=== PATIENT | female | born 2000 | race African-American/Black ===

== ENCOUNTER 2021-03-31 23:48 | Emergency (ER) | payer OTHER ==
[2021-04-01] MEDS ORDERED: Acetaminophen 325 MG TAB ONE (00:44)
[2021-04-01 00:59] LABS: Bilirubin Neg (Negative); Blood, Urine 50 (Negative); Clarity Cloudy (Clear); Glucose, Urine (Dipstick) Normal (Negative); Ketone, Urine 5 mg/dL (Negative); Leukocyte 500 (Negative); Nitrite Negative (Negative); Protein, Urine (Dipstick) 30 mg/dl (Neg-Trace)
[2021-04-01 01:00] LABS: Pregnancy Test - Urine (BHCG) POSITIVE (Negative); Pregu Control Background? CLEAR/WHITE (CLR/WHITE); Pregu Control Bar Appear? YES (CONTROL BAR)
[2021-04-01 01:09] LABS: Bacteria/HPF 2+ HPF (None Seen); Mucous/LPF 4+ LPF (<2+); WBC/HPF 21-50 HPF (0-3)
== END 2021-04-01 01:39 | disposition home or self-care (01) ==
LOC: CSHERS 23:48
DX: O23.40 Unspecified infection of urinary tract in pregnancy, unspecified trimester (principal); N39.0 Urinary tract infection, site not specified
CPT/HCPCS: 81003; 81015; 81025; 99284

== ENCOUNTER 2021-04-16 21:18 | Emergency (ER) | payer OTHER ==
[2021-04-17 00:29] LABS: Bilirubin Neg (Negative); Blood, Urine Negative (Negative); Clarity Clear (Clear); Glucose, Urine (Dipstick) Normal (Negative); Ketone, Urine Negative (Negative); Leukocyte Negative (Negative); Nitrite Negative (Negative); Protein, Urine (Dipstick) Negative (Neg-Trace)
[2021-04-17 00:31] LABS: Pregnancy Test - Urine (BHCG) POSITIVE (Negative); Pregu Control Background? CLEAR/WHITE (CLR/WHITE); Pregu Control Bar Appear? YES (CONTROL BAR)
[2021-04-17 01:11] LABS: #Eosinphils 0.2 10x3/uL (0.0-0.5); #Monocytes 0.6 10x3/uL (0.0-1.1); #Neutrophils 7.2 10x3/uL (1.5-8.4); %Basophils 0.2 % (0.0-2.0); %Eosinophils 1.4 % (0.0-6.0); %Lymphocytes 24.5 % (18.0-47.0); %Monocytes 5.6 % (0.0-10.0); %Neutrophils 68.1 % (40.0-75.0); Hemoglobin 11.1 g/dL (12.0-15.5); Mean Corpuscular HGB CONC 32.6 g/dL (32.0-36.0); Mean Corpuscular Hemoglobin 27.8 pg (27.0-33.0); Mean Corpuscular Volume 85.5 fl (81.6-98.3); Mean Platelet Volume 12.3 fl (7.4-10.4); Platelet Count 171 10x3/uL (150-450); RBC Distribution Width 14.4 % (11.5-14.5); Red Blood Cell (RBC) Count 3.99 10x6/uL (3.90-5.03); White Blood Cell (WBC) Count 10.6 10x3/uL (3.5-10.5)
[2021-04-17 01:23] LABS: ALT (SGPT) 35 U/L (8-55); AST (SGOT) 29 U/L (5-34); Albumin 3.7 g/dL (3.5-5.0); Alkaline Phosphatase 76 U/L (40-110); Anion Gap 13 mmol/L (10-20); BUN (Urea Nitrogen) 15 mg/dL (7.0-18.7); Bilirubin, Total 0.3 mg/dL (0.2-1.2); Calc. Creatinine Clearance 0 mL/min (70-130); Calcium 9.2 mg/dL (7.8-10.44); Carbon Dioxide 21 mmol/L (22-29); Chloride 108 mmol/L (98-107); Globulin 3.1 g/dL (2.4-3.5); Glucose 82 mg/dL (70-105); Potassium 3.9 mmol/L (3.5-5.1); Protein, Total 6.8 g/dL (6.0-8.3); Sodium 138 mmol/L (136-145)
== END 2021-04-17 01:46 | disposition home or self-care (01) ==
LOC: CSHERS 21:18
DX: O99.891 Other specified diseases and conditions complicating pregnancy (principal); R10.2 Pelvic and perineal pain; M54.50 Low back pain, unspecified; Z3A.08 8 weeks gestation of pregnancy; Z79.899 Other long term (current) drug therapy
CPT/HCPCS: 36415; 80053; 81003; 81025; 84702; 85025; 86900; 86901; 99283

== ENCOUNTER 2021-05-25 02:29 | Emergency (ER) | payer OTHER ==
[2021-05-25] MEDS ORDERED: Acetaminophen 500 MG TAB ONE (03:00)
[2021-05-25] MEDS ORDERED: Ondansetron ODT 4 MG TAB ONE (03:00)
[2021-05-25 03:12] LABS: Bilirubin Neg (Negative); Blood, Urine Negative (Negative); Clarity Cloudy (Clear); Glucose, Urine (Dipstick) Normal (Negative); Ketone, Urine Negative (Negative); Leukocyte 100 (Negative); Nitrite Negative (Negative); Protein, Urine (Dipstick) 15 mg/dl (Neg-Trace); Specific Gravity, Urine 1.025 (1.002-1.036)
[2021-05-25 03:18] LABS: RBC/HPF 0-3 HPF (0-3)
[2021-05-25 03:19] LABS: Bacteria/HPF 2+ HPF (None Seen); Mucous/LPF 2+ LPF (<2+)
[2021-05-25 17:56] LABS: SARS-CoV-2 PCR by NAA Not Detected (NotDetected)
== END 2021-05-25 03:31 | disposition home or self-care (01) ==
LOC: CSHERS 02:29
DX: O99.891 Other specified diseases and conditions complicating pregnancy (principal); Z20.822 Contact with and (suspected) exposure to COVID-19; R82.71 Bacteriuria; Z3A.13 13 weeks gestation of pregnancy
CPT/HCPCS: 81003; 81015; 99283; Q0162; U0003; U0005

== ENCOUNTER 2021-11-21 20:38 | Day surgery (SDC) | payer OTHER ==
[2021-11-21] MEDS ORDERED: hydrALAZINE 20 MG/ML VIAL SLOW IVP PRN (22:34)
[2021-11-21] MEDS ORDERED: Promethazine HCl 25 MG/ML VIAL IM SCH (22:45)
[2021-11-21] MEDS ORDERED: Morphine 10 MG/ML VIAL IM SCH (22:45)
== END 2021-11-21 23:46 | disposition home or self-care (01) ==
LOC: CSHLD/OP 20:38
PROVIDERS: ATTEND Obstetrics & Gynecology
DX: Z36.83 Encounter for fetal screening for congenital cardiac abnormalities (principal); O26.893 Other specified pregnancy related conditions, third trimester; R10.2 Pelvic and perineal pain; Z98.891 History of uterine scar from previous surgery; Z3A.39 39 weeks gestation of pregnancy
CPT/HCPCS: 76819; 99282; J2270; J2550

== ENCOUNTER 2022-08-06 16:02 | Emergency (ER) | payer OTHER ==
[2022-08-06] MEDS ORDERED: Tetracaine 0.5% PF 4 ML BOT ONE (18:13)
[2022-08-06] MEDS ORDERED: Fluorescein Opthalmic Strip ONE (18:20)
== END 2022-08-06 18:42 | disposition home or self-care (01) ==
LOC: CSHERS 16:02
DX: H10.32 Unspecified acute conjunctivitis, left eye (principal)
CPT/HCPCS: 99282

== ENCOUNTER 2022-10-23 19:57 | Emergency (ER) | payer OTHER ==
[2022-10-23] MEDS ORDERED: Ketorolac Tromethamine 30 MG/ML VIAL ONE (22:07)
== END 2022-10-23 22:26 | disposition home or self-care (01) ==
LOC: CSHERS 19:57
DX: K08.89 Other specified disorders of teeth and supporting structures (principal); H66.91 Otitis media, unspecified, right ear
CPT/HCPCS: 96372; 99282; J1885

== ENCOUNTER 2022-11-21 14:44 | Emergency (ER) | payer OTHER ==
[2022-11-21 16:16] LABS: SARS-CoV-2 NAA Rapid Test DETECTED (NotDetected)
== END 2022-11-21 15:24 | disposition home or self-care (01) ==
LOC: CSHERS 14:44
DX: B34.9 Viral infection, unspecified (principal); Z20.822 Contact with and (suspected) exposure to COVID-19
CPT/HCPCS: 99283; U0002

== ENCOUNTER 2022-12-19 12:31 | Emergency (ER) | payer OTHER, SELFPAY ==
[2022-12-19] MEDS ORDERED: diphenhydrAMINE 50 MG/ML VIAL ONE (16:05)
[2022-12-19] MEDS ORDERED: Ketorolac Tromethamine 30 MG/ML VIAL ONE (16:05)
[2022-12-19] MEDS ORDERED: Prochlorperazine 10 MG/2 ML VIAL ONE (16:05)
[2022-12-19] MEDS ORDERED: Dexamethasone 4 mg/ml Vial ONE (16:06)
[2022-12-19] MEDS ORDERED: Acetaminophen 500 MG TAB ONE (16:06)
== END 2022-12-19 17:24 | disposition home or self-care (01) ==
LOC: CSHERS 12:31
DX: R51.9 Headache, unspecified (principal); K08.89 Other specified disorders of teeth and supporting structures; H92.01 Otalgia, right ear; F17.290 Nicotine dependence, other tobacco product, uncomplicated
CPT/HCPCS: 96361; 96374; 96375; J0780; J1100; J1200; J1885

== ENCOUNTER 2023-01-18 00:09 | Emergency (ER) | payer SELFPAY ==
[2023-01-18] MEDS ORDERED: Amoxicillin/Potassium Clav 875 MG TAB ONE (00:47)
[2023-01-18] MEDS ORDERED: Ketorolac Tromethamine 30 MG/ML VIAL ONE (00:47)
== END 2023-01-18 00:54 | disposition home or self-care (01) ==
LOC: CSHERS 00:09
DX: J01.90 Acute sinusitis, unspecified (principal); B96.89 Other specified bacterial agents as the cause of diseases classified elsewhere; K04.7 Periapical abscess without sinus; F17.290 Nicotine dependence, other tobacco product, uncomplicated
CPT/HCPCS: 96372; 99282; J1885

== ENCOUNTER 2023-02-23 14:20 | Emergency (ER) | payer SELFPAY ==
[2023-02-23 16:00] LABS: Bilirubin Neg (Negative); Blood, Urine 10 (Negative); Glucose, Urine (Dipstick) Normal (Negative); Ketone, Urine Negative (Negative); Leukocyte 500 (Negative); Nitrite Negative (Negative); Protein, Urine (Dipstick) 15 mg/dl (Neg-Trace)
[2023-02-23 16:02] LABS: Pregnancy Test - Urine (BHCG) Negative (Negative); Pregu Control Background? CLEAR/WHITE (CLR/WHITE); Pregu Control Bar Appear? YES (CONTROL BAR)
[2023-02-23 16:11] LABS: Clarity Hazy (Clear)
[2023-02-23 16:16] LABS: Bacteria/HPF 2+ HPF (None Seen); CAUTI Indications for Culture Pelvic or flank pain; Mucous/LPF 3+ LPF (<2+)
[2023-02-23 16:18] LABS: Urine Culture Reflex No No
[2023-02-23] MEDS ORDERED: Ibuprofen 200 MG TAB ONE (16:32)
[2023-02-23] MEDS ORDERED: Acetaminophen 500 MG TAB ONE (16:32)
[2023-02-23] MEDS ORDERED: Ondansetron ODT 4 MG TAB ONE (16:33)
== END 2023-02-23 18:11 | disposition home or self-care (01) ==
LOC: CSHERS 14:20
DX: N39.0 Urinary tract infection, site not specified (principal); R51.9 Headache, unspecified; R11.0 Nausea; F17.290 Nicotine dependence, other tobacco product, uncomplicated
CPT/HCPCS: 81001; 81025; 87480; 87510; 87660; 99284; Q0162

== ENCOUNTER 2023-03-20 08:00 | Emergency (ER) | payer SELFPAY ==
[2023-03-20 08:38] LABS: Bilirubin Neg (Negative); Blood, Urine 10 (Negative); Clarity Slightly Cloudy (Clear); Glucose, Urine (Dipstick) Normal (Negative); Ketone, Urine Negative (Negative); Leukocyte 500 (Negative); Nitrite Negative (Negative); Protein, Urine (Dipstick) 30 mg/dl (Neg-Trace)
[2023-03-20] MEDS ORDERED: Acetaminophen 500 MG TAB ONE (08:45)
[2023-03-20] MEDS ORDERED: Ondansetron ODT 4 MG TAB ONE (08:46)
[2023-03-20 09:05] LABS: RBC/HPF 0-3 HPF (0-3)
[2023-03-20 09:06] LABS: Bacteria/HPF 2+ HPF (None Seen); CAUTI Indications for Culture Pregnancy; Mucous/LPF 2+ LPF (<2+)
[2023-03-20 09:08] LABS: Urine Culture Reflex Yes Yes
[2023-03-20 09:16] LABS: ALT (SGPT) 18 U/L (8-55); AST (SGOT) 15 U/L (5-34); Albumin 3.8 g/dL (3.5-5.0); Alkaline Phosphatase 71 U/L (40-110); Anion Gap 12 mmol/L (10-20); BUN (Urea Nitrogen) 10 mg/dL (7.0-18.7); Bilirubin, Total 0.4 mg/dL (0.2-1.2); Calc. Creatinine Clearance 0 mL/min (70-130); Calcium 8.8 mg/dL (7.8-10.44); Carbon Dioxide 22 mmol/L (22-29); Chloride 106 mmol/L (98-107); Estimated GFR 120; Globulin 3.1 g/dL (2.4-3.5); Glucose 84 mg/dL (70-105); Potassium 3.6 mmol/L (3.5-5.1); Protein, Total 6.9 g/dL (6.0-8.3); Sodium 136 mmol/L (136-145)
[2023-03-20 09:19] LABS: #Eosinphils 0.1 10x3/uL (0.0-0.5); #Monocytes 0.3 10x3/uL (0.0-1.1); #Neutrophils 4.2 10x3/uL (1.5-8.4); %Basophils 0.3 % (0.0-2.0); %Eosinophils 2.1 % (0.0-6.0); %Lymphocytes 27.6 % (18.0-47.0); %Monocytes 5.2 % (0.0-10.0); %Neutrophils 64.5 % (40.0-75.0); Hematocrit 34.9 % (34.9-44.5); Hemoglobin 11.5 g/dL (12.0-15.5); Mean Corpuscular Hemoglobin 27.4 pg (27.0-33.0); Mean Corpuscular Volume 83.3 fl (81.6-98.3); Platelet Count 214 10x3/uL (150-450); RBC Distribution Width 14.7 % (11.5-14.5); Red Blood Cell (RBC) Count 4.19 10x6/uL (3.90-5.03); White Blood Cell (WBC) Count 6.5 10x3/uL (3.5-10.5)
== END 2023-03-20 10:36 | disposition home or self-care (01) ==
LOC: CSHERS 08:00
DX: O23.41 Unspecified infection of urinary tract in pregnancy, first trimester (principal); N39.0 Urinary tract infection, site not specified; O99.891 Other specified diseases and conditions complicating pregnancy; R11.0 Nausea; O99.331 Smoking (tobacco) complicating pregnancy, first trimester; F17.290 Nicotine dependence, other tobacco product, uncomplicated; Z3A.01 Less than 8 weeks gestation of pregnancy
CPT/HCPCS: 76817; 80053; 81001; 84702; 85025; 87086; Q0162

== ENCOUNTER 2023-04-25 08:54 | Emergency (ER) | payer MEDICAID, SELFPAY ==
[2023-04-25 09:47] LABS: #Eosinphils 0.1 10x3/uL (0.0-0.5); #Monocytes 0.4 10x3/uL (0.0-1.1); %Basophils 0.3 % (0.0-2.0); %Eosinophils 1.2 % (0.0-6.0); %Lymphocytes 24.3 % (18.0-47.0); %Monocytes 5.4 % (0.0-10.0); %Neutrophils 68.7 % (40.0-75.0); Hematocrit 37.2 % (34.9-44.5); Hemoglobin 12.6 g/dL (12.0-15.5); Mean Corpuscular HGB CONC 33.9 g/dL (32.0-36.0); Mean Corpuscular Hemoglobin 28.3 pg (27.0-33.0); Mean Corpuscular Volume 83.6 fl (81.6-98.3); Mean Platelet Volume 10.7 fl (7.4-10.4); Platelet Count 247 10x3/uL (150-450); RBC Distribution Width 14.6 % (11.5-14.5); Red Blood Cell (RBC) Count 4.45 10x6/uL (3.90-5.03); White Blood Cell (WBC) Count 7.3 10x3/uL (3.5-10.5)
[2023-04-25 10:04] LABS: Bilirubin Neg (Negative); Blood, Urine 250 (Negative); Clarity Slightly Cloudy (Clear); Glucose, Urine (Dipstick) Normal (Negative); Ketone, Urine Negative (Negative); Leukocyte 100 (Negative); Nitrite Negative (Negative); Protein, Urine (Dipstick) 15 mg/dl (Neg-Trace); Urobilinogen Normal mg/dL (Less than 2)
[2023-04-25 10:18] LABS: CAUTI Indications for Culture Dysuria,urgency,freq
[2023-04-25 10:19] LABS: Bacteria/HPF 1+ HPF (None Seen)
[2023-04-25 10:22] LABS: Urine Culture Reflex No No
== END 2023-04-25 11:15 | disposition home or self-care (01) ==
LOC: CSHERS 08:54
DX: O20.8 Other hemorrhage in early pregnancy (principal); F17.290 Nicotine dependence, other tobacco product, uncomplicated; Z3A.12 12 weeks gestation of pregnancy
CPT/HCPCS: 36415; 76815; 81001; 84702; 85025; 86900; 86901

== ENCOUNTER 2023-05-01 12:07 | Emergency (ER) | payer MEDICAID ==
[2023-05-01 13:53] LABS: Bilirubin Neg (Negative); Blood, Urine Negative (Negative); Clarity Clear (Clear); Glucose, Urine (Dipstick) Normal (Negative); Ketone, Urine Negative (Negative); Leukocyte 25 (Negative); Nitrite Negative (Negative); Protein, Urine (Dipstick) Negative (Neg-Trace); Specific Gravity, Urine 1.015 (1.005-1.030); Urobilinogen Normal mg/dL (Less than 2)
[2023-05-01 14:05] LABS: Bacteria/HPF Rare-Few HPF (None Seen); CAUTI Indications for Culture Acute Hematuria; RBC/HPF 0-3 HPF (0-3); Squamous Epithelial 0-3 HPF (0-3); Transitional Epithelial 0-3 HPF (None Seen); Urine Culture Reflex No No; WBC/HPF 0-3 HPF (0-3)
== END 2023-05-01 14:49 | disposition home or self-care (01) ==
LOC: CSHERS 12:07
DX: O20.0 Threatened abortion (principal); O99.331 Smoking (tobacco) complicating pregnancy, first trimester; F17.290 Nicotine dependence, other tobacco product, uncomplicated; Z3A.13 13 weeks gestation of pregnancy
CPT/HCPCS: 81001; 87086; 99284

== ENCOUNTER 2023-07-06 23:53 | Emergency (ER) | payer MEDICAID, OTHER ==
[2023-07-07] MEDS ORDERED: Acetaminophen 500 MG TAB ONE (00:16)
== END 2023-07-07 01:03 | disposition home or self-care (01) ==
LOC: CSHERS 23:53
DX: O99.352 Diseases of the nervous system complicating pregnancy, second trimester (principal); O99.332 Smoking (tobacco) complicating pregnancy, second trimester; H66.93 Otitis media, unspecified, bilateral; Z3A.23 23 weeks gestation of pregnancy
CPT/HCPCS: 99282